=== PATIENT | male | born 1945 | race Caucasian/White ===

== ENCOUNTER 2018-11-04 08:12 | Day surgery (SDC) | payer OTHER ==
[~2018-11-04] VITALS: Ht 177.8 cm; Wt 92.1 kg
[~2018-11-04 08:12] MED LIST: ENAL20TA PO; POLY454P5 MC; PROPOFOL 10 MG/ML 20ML VIAL IV ONE; SIMV20TA6 PO; SODIUM CHLORIDE 0.9% 1000ML 1,000 ML IV ONE; TIOT4MIS5 IH
[2018-11-04 10:53] VITALS: BP 126/81
[2018-11-04 12:17] VITALS: BP 121/74
[2018-11-04 12:24] VITALS: BP 109/73
[2018-11-04 12:41] VITALS: BP 123/79
== END 2018-11-04 12:47 | disposition home or self-care (01) ==
LOC: DAH 08:12 → ENDO 08:12
PROVIDERS: ATTEND Internal Medicine
DX: C16.0 Malignant neoplasm of cardia (principal); K31.89 Other diseases of stomach and duodenum; E78.5 Hyperlipidemia, unspecified; I10 Essential (primary) hypertension; J44.9 Chronic obstructive pulmonary disease, unspecified; F17.210 Nicotine dependence, cigarettes, uncomplicated; Z98.49 Cataract extraction status, unspecified eye; Z90.49 Acquired absence of other specified parts of digestive tract; Z98.890 Other specified postprocedural states; Z79.899 Other long term (current) drug therapy; Z72.89 Other problems related to lifestyle
CPT/HCPCS: 43239; 88305; 93005; A4606; J2704; J7030

== ENCOUNTER → 2018-11-27 | Outpatient (CLI) | payer OTHER ==
[~2018-11-27] MED LIST changes: +IOHEXOL 350 MG/ML 100ML INFUS..BTL IV ONE; -PROPOFOL 10 MG/ML 20ML VIAL IV ONE; -SODIUM CHLORIDE 0.9% 1000ML 1,000 ML IV ONE
== END | disposition home or self-care (01) ==
LOC: RAH 08:53
PROVIDERS: ATTEND Internal Medicine
DX: C15.5 Malignant neoplasm of lower third of esophagus (principal); K57.30 Diverticulosis of large intestine without perforation or abscess without bleeding; K44.9 Diaphragmatic hernia without obstruction or gangrene; K40.90 Unilateral inguinal hernia, without obstruction or gangrene, not specified as recurrent; J84.10 Pulmonary fibrosis, unspecified; R59.0 Localized enlarged lymph nodes; R91.8 Other nonspecific abnormal finding of lung field; N28.1 Cyst of kidney, acquired; I71.9 Aortic aneurysm of unspecified site, without rupture; K76.89 Other specified diseases of liver
CPT/HCPCS: 71270; 74178; Q9967

== ENCOUNTER 2019-07-13 13:40 | Inpatient (IN) | payer OTHER ==
[~2019-07-13] VITALS: Ht 177.8 cm; Wt 80.9 kg
[~2019-07-13 13:40] MED LIST changes: -ENAL20TA PO; +ENAL20TA18 PO; -IOHEXOL 350 MG/ML 100ML INFUS..BTL IV ONE; +SIMV-43 PO; -SIMV20TA6 PO
[2019-07-13 14:26] LABS: ABG BASE EXCESS 0.9 mmol/L (-2.0-3.0); ABG HCO3 24.2 mmol/L (21.0-28.0); ABG OXYGEN SATURATION 91.3 % (95.0-99.0); ABG PCO2 35 mmHg (35-48)
[2019-07-13 14:50] LABS: INR 1.08 (0.85-1.15); PROTHROMBIN TIME 11.6 SEC (9.6-11.6)
[2019-07-13 14:56] LABS: BASOPHILS % (AUTO) 0.4 % (0.0-5.0); HEMATOCRIT 34.5 % (42-54); LYMPHOCYTES % (AUTO) 10.1 % (21.0-51.0); MEAN CORPUSCULAR HEMOGLOBIN 31.8 pg (27.0-33.0); MEAN CORPUSCULAR HGB CONC 32.2 g/dL (32.0-36.0); MEAN CORPUSCULAR VOLUME 98.9 fL (79-99); MONOCYTES % (AUTO) 6.6 % (3.0-13.0); NUCLEATED RED BLOOD CELLS 0.2 % (0.0-0.19); PLATELET COUNT (AUTO) 125 K/uL (130-400); RED BLOOD CELL COUNT(AUTO) 3.49 MIL/uL (4.50-6.20); RED CELL DISTRIBUTION WIDTH 18.8 % (11.0-15.5); WHITE BLOOD COUNT (AUTO) 9.2 K/uL (4.8-10.8)
[2019-07-13 14:58] LABS: CARBON DIOXIDE 29 mmol/L (21-32); CHLORIDE 103 mmol/L (101-111); CREATININE 0.8 mg/dL (0.5-1.5); GLOMERULAR FILTR. RATE CALC 101 mL/min (>60); GLUCOSE,RANDOM 98 mg/dL (70-105); POTASSIUM 3.4 mmol/L (3.5-5.1); SODIUM SERUM 137 mmol/L (136-145); UREA NITROGEN, BLOOD 12 mg/dL (7-18)
[2019-07-13 15:09] LABS: ALANINE AMINOTRANSFERASE 31 U/L (12-78); ALBUMIN 2.2 g/dL (3.5-5.0); ASPARTATE AMINOTRANSFERASE 34 U/L (10-37); BILIRUBIN,TOTAL 0.5 mg/dL (0.2-1.0); CREATINE KINASE, TOTAL 25 U/L (21-232); MYOGLOBIN 48 ng/mL (10-92); TOTAL PROTEIN, SERUM 6.7 g/dL (6.0-8.3); TROPONIN I < 0.04 ng/mL (0.00-0.06)
[2019-07-13 16:01] LABS: APPEARANCE,URINE Clear (CLEAR); BILIRUBIN,URINE Small (NEGATIVE); COLOR,URINE Dark Yellow (YELLOW); GLUCOSE, URINE (UA) Negative (NEGATIVE); KETONES,URINE Trace mg/dL (NEGATIVE); LEUKOCYTE ESTERASE ,URINE Trace (NEGATIVE); NITRATE,URINE Negative (NEGATIVE); OCCULT BLOOD,URINE Negative (NEGATIVE); PROTEIN,URINE POS 1+ mg/dL (NEGATIVE)
[2019-07-13 16:12] LABS: BACTERIA,URINE Rare /HPF (None Seen); RBC,URINE 0-1 /HPF (0-1); SQUAMOUS EPITHELIAL CELL,UR Few /HPF (0-2)
[2019-07-13 16:13] LABS: HYALINE CASTS, URINE 0-1 /LPF (0-1 /LPF); MUCUS,URINE Moderate LPF (None Seen)
[2019-07-13] MEDS ORDERED: ACETAMINOPHEN 325 MG TAB PO PRN ×2 (20:00)
[2019-07-13] MEDS ORDERED: ONDANSETRON HCL 4 MG/2 ML VIAL IV PRN (20:00)
[2019-07-13] MEDS ORDERED: HYDRALAZINE HCL 20 MG/ML VIAL IV PRN (20:00)
[2019-07-13] MEDS ORDERED: MORPHINE SULFATE 2 MG/ML 1ML SYG IV PRN (20:00)
[2019-07-13] MEDS ORDERED: LEVOFLOXACIN 750 MG/D5W 150 ML 150 ML IV SCH (20:30)
[2019-07-13] MEDS: METHYLPREDNISOLONE SOD SUCC 40MG/ML 1ML IVP SCH (20:45)
[2019-07-13] MEDS ORDERED: GUAIFENESIN-CODEINE 5 ML SYRUP PO PRN (21:00)
[2019-07-13] MEDS ORDERED: METHYLPREDNISOLONE SOD SUCC 40MG/ML 1ML ONE (22:18)
[2019-07-13] MEDS ORDERED: FAMOTIDINE/PF 20 MG/2 ML VIAL IV ONE (22:19)
[2019-07-14] VITALS (7 sets, daily range): BP systolic 102–154; BP diastolic 69–91
[2019-07-14] MEDS ORDERED: LEVO500T2 PO (01:32)
[2019-07-14 05:11] LABS: BASOPHILS % (AUTO) 0.1 % (0.0-5.0); HEMATOCRIT 32.2 % (42-54); LYMPHOCYTES % (AUTO) 7.8 % (21.0-51.0); MEAN CORPUSCULAR HEMOGLOBIN 31.5 pg (27.0-33.0); MEAN CORPUSCULAR HGB CONC 31.7 g/dL (32.0-36.0); MEAN CORPUSCULAR VOLUME 99.4 fL (79-99); MONOCYTES % (AUTO) 1.5 % (3.0-13.0); NEUTROPHILS % (AUTO) 89.9 % (40.0-77.0); PLATELET COUNT (AUTO) 110 K/uL (130-400); RED BLOOD CELL COUNT(AUTO) 3.24 MIL/uL (4.50-6.20); RED CELL DISTRIBUTION WIDTH 18.6 % (11.0-15.5); WHITE BLOOD COUNT (AUTO) 6.9 K/uL (4.8-10.8)
[2019-07-14 05:28] LABS: ALBUMIN 2.2 g/dL (3.5-5.0); BILIRUBIN,TOTAL 0.5 mg/dL (0.2-1.0); CREATININE 0.8 mg/dL (0.5-1.5); POTASSIUM 3.3 mmol/L (3.5-5.1); TOTAL PROTEIN, SERUM 6.2 g/dL (6.0-8.3)
[2019-07-14] MEDS: METHYLPREDNISOLONE SOD SUCC 40MG/ML 1ML IVP SCH ×3 (05:40→21:02)
[2019-07-14] MEDS: FAMOTIDINE/PF 20 MG/2 ML VIAL IV SCH (09:14)
[2019-07-14] MEDS: FUROSEMIDE 10 MG/ML 2ML VIAL IV SCH (09:14)
[2019-07-14] MEDS: LEVOFLOXACIN 750 MG/D5W 150 ML 150 ML IV SCH (09:58)
[2019-07-14] MEDS ORDERED: POTASSIUM CHLORIDE 20 MEQ ERTAB PO SCH (13:00)
[2019-07-15 03:41] VITALS: BP 121/79
[2019-07-15 05:28] LABS: BASOPHILS % (AUTO) 0.1 % (0.0-5.0); HEMATOCRIT 31.6 % (42-54); LYMPHOCYTES % (AUTO) 6.7 % (21.0-51.0); MEAN CORPUSCULAR HEMOGLOBIN 31.1 pg (27.0-33.0); MEAN CORPUSCULAR HGB CONC 31.3 g/dL (32.0-36.0); MEAN CORPUSCULAR VOLUME 99.4 fL (79-99); MONOCYTES % (AUTO) 3.4 % (3.0-13.0); NEUTROPHILS % (AUTO) 88.8 % (40.0-77.0); PLATELET COUNT (AUTO) 129 K/uL (130-400); RED BLOOD CELL COUNT(AUTO) 3.18 MIL/uL (4.50-6.20); RED CELL DISTRIBUTION WIDTH 18.5 % (11.0-15.5); WHITE BLOOD COUNT (AUTO) 9.7 K/uL (4.8-10.8)
[2019-07-15] MEDS: METHYLPREDNISOLONE SOD SUCC 40MG/ML 1ML IVP SCH ×2 (05:41→13:02)
[2019-07-15 05:44] LABS: B-TYPE NATRIURETIC PEPTIDE 39 pg/mL (0-100)
[2019-07-15 05:53] LABS: ALBUMIN 2.1 g/dL (3.5-5.0); CREATININE 0.8 mg/dL (0.5-1.5); MAGNESIUM 1.4 mg/dL (1.80-2.40); PHOSPHORUS 2.6 mg/dL (2.5-4.9); POTASSIUM 4.1 mmol/L (3.5-5.1)
[2019-07-15] MEDS: FAMOTIDINE/PF 20 MG/2 ML VIAL IV SCH (07:59)
[2019-07-15] MEDS: FUROSEMIDE 10 MG/ML 2ML VIAL IV SCH (08:00)
[2019-07-15] MEDS: LEVOFLOXACIN 750 MG/D5W 150 ML 150 ML IV SCH (08:00)
[2019-07-15 08:13] VITALS: BP 121/81
[2019-07-15 12:40] VITALS: BP 111/71
--- NOTE | 2019-07-15 13:00 | NUR ---
RECEIVED REPORT FROM FARIDEH BROWN PT IS AAOX3 DENIES CP DENIES SOB DENIES NV NO COMPLAINTS RESTING IN BED. CALL LIGHT WITHIN REACH. ENHANCED PRECAUTIONS IN PLACE.
--- NOTE | 2019-07-15 15:47 | NUR ---
DC PLAN PATIENT LIVES WITH SPOUSE. INDEPENDENT ABLE TO PERFORM ADL'S. PATIENT HAS NO SERVICES OR DME'S. PLAN IS TO DC HOME. Addendum: 07/15/19 at 1551 by WILL WOODY RN CM Amended: Links added.
--- NOTE | 2019-07-15 15:51 | NUR ---
DC PLAN VERBAL PENDING COVID RESULTS ON ADV ISOLATION. GOT VERBAL CONSENT COSIGNED WITH FLOOR NURSE FOR . CALLED SAID PATIENT UPSET SAID THAT PEOPLE WHO START ON NEED IT LIKE A DRUG. DR. GREENBERG VISITED WITH PATIENT. PATIENT SAID OKAY TO ORDER OXYGEN. INFO SENT TO [place]. [facility] WILL CONTINUE TO FOLLOW. Addendum: 07/15/19 at 1601 by WILL WOODY RN CM Amended: Links added.
[2019-07-15 16:31] VITALS: BP 124/81
--- NOTE | 2019-07-15 17:00 | NUR ---
DR CAMERON ROUNDED SAW PATIENT, ORDERS RECEIVED
[2019-07-15 19:05] VITALS: BP 127/83
--- NOTE | 2019-07-15 19:15 | NUR ---
PT STATES NO PAIN. NO DISTRESS NOTED. MINIMAL SOB. ON OXYGEN AT 3LPM. OXYGEN IS 92%. ST 110. STATES BEING ABLE TO AMBULATE WITH NO ASSISTANCE. DID REQUEST COFFEE. AND STATES LAST BM WAS 07/13. PT STATES NO FURTHER CONCERNS. ON DROPLET PRECAUTIONS.
--- NOTE | 2019-07-15 20:00 | NUR ---
RT AWARE OF SPUTUM CULTURE ORDER PENDING.
[2019-07-15] MEDS ORDERED: MAGNESIUM 2GM PREMIX 50ML 50 ML IV PRN (20:45)
[2019-07-15 23:36] VITALS: BP 128/84
--- NOTE | 2019-07-15 23:37 | NUR ---
MAGNESIUM PROTOCOL INITIATED. 1.4 LEVEL. RUNNING AT 20ML/HR. PT AWARE.
[2019-07-16 04:00] VITALS: BP 126/75
--- NOTE | 2019-07-16 07:10 | NUR ---
ASSESSMENT PT IS AAOX3 DENIES CP DENIES SOB WHILE AT REST AT THIS MOMENT. DENIES NV. CURRENTLY ON O2 VIA NV AT 3LPM. SITTING UPRIGHT IN BED, CALL LIGHT WITHIN REACH.
[2019-07-16] MEDS: FUROSEMIDE 10 MG/ML 2ML VIAL IV SCH (07:36)
[2019-07-16] MEDS: FAMOTIDINE/PF 20 MG/2 ML VIAL IV SCH (07:36)
[2019-07-16 08:29] VITALS: BP 125/74
[2019-07-16] MEDS ORDERED: LEVOFLOXACIN 500 MG TABLET PO SCH (09:00)
[2019-07-16] MEDS ORDERED: PREDNISONE 20 MG TABLET PO SCH (09:00)
[2019-07-16 10:30] VITALS: BP 111/47
--- NOTE | 2019-07-16 10:35 | NUR ---
TRANSFERRED PATIENT UP TO 3RD FLOOR ROOM 309. ALL BELONGINGS TAKEN WITH PATIENT. REPORT GIVEN TO DANAE BROWN.
--- NOTE | 2019-07-16 16:27 | NUR ---
CM NOTE OXYGEN DELIVERED. PRIMARY NURSE, JAMILA RN, TAUGHT HOW TO OPERATE OXYGEN CANISTER. JAMILA RN VERBALIZED UNDERSTANDING AND WILL TEACH PATIENT HOW TO OPERATE PORTABLE OXYGEN. PER OXYGEN DELIVERY, WILL DROP OFF CONCENTRATED AT HOME.
[2019-07-16] MEDS ORDERED: PRED20B PO (16:33)
[2019-07-16] MEDS ORDERED: LEVO500T2 PO (16:33)
== END 2019-07-16 19:00 | disposition home or self-care (01) | DRG 177 ==
LOC: EDH 13:40 → EDHIP 17:45 → 2AH 22:28 → 2DH 07-15 14:26 → 3BH 07-16 11:12
PROVIDERS: ADMIT Internal Medicine; ATTEND Internal Medicine
DX: J15.6 Pneumonia due to other Gram-negative bacteria (principal); J96.01 Acute respiratory failure with hypoxia; J44.1 Chronic obstructive pulmonary disease with (acute) exacerbation; C34.90 Malignant neoplasm of unspecified part of unspecified bronchus or lung; C15.9 Malignant neoplasm of esophagus, unspecified; J44.0 Chronic obstructive pulmonary disease with (acute) lower respiratory infection; E87.6 Hypokalemia; D69.6 Thrombocytopenia, unspecified; I10 Essential (primary) hypertension; J84.112 Idiopathic pulmonary fibrosis; Z87.891 Personal history of nicotine dependence; Z03.818 Encounter for observation for suspected exposure to other biological agents ruled out
CPT/HCPCS: 36415; 36600; 71045; 71250; 80048; 80053; 81001; 82040; 82550; 82803; 83605; 83735; 83874; 83880; 84100; 84145; 84484; 85025; 85610; 85730; 87040; 87088; 87633; 87635; 87804; 93005; 94760; 99291; G0378; J1940; J1956; J2920; J3475; J3490

== ENCOUNTER 2019-07-31 20:14 | Inpatient (IN) | payer OTHER ==
[~2019-07-31] VITALS: Ht 180.3 cm; Wt 89.8 kg
[~2019-07-31 20:14] MED LIST changes: +LEVO500T2 PO; +PRED20B PO
[2019-07-31] MEDS ORDERED: ASPIRIN 325 MG TABLET ONE (20:19)
[2019-07-31 20:30] LABS: BASOPHILS % (AUTO) 0.3 % (0.0-5.0); HEMATOCRIT 36.7 % (42-54); LYMPHOCYTES % (AUTO) 8.9 % (21.0-51.0); MEAN CORPUSCULAR HEMOGLOBIN 32.3 pg (27.0-33.0); MEAN CORPUSCULAR HGB CONC 31.3 g/dL (32.0-36.0); MEAN CORPUSCULAR VOLUME 103.1 fL (79-99); NEUTROPHILS % (AUTO) 82.2 % (40.0-77.0); PLATELET COUNT (AUTO) 166 K/uL (130-400); RED BLOOD CELL COUNT(AUTO) 3.56 MIL/uL (4.50-6.20); RED CELL DISTRIBUTION WIDTH 19.9 % (11.0-15.5); WHITE BLOOD COUNT (AUTO) 12.1 K/uL (4.8-10.8)
[2019-07-31 20:43] LABS: INR 1.15 (0.85-1.15); PARTIAL THROMBOPLASTIN TIME 26.8 SEC (26.3-35.5); PROTHROMBIN TIME 12.4 SEC (9.6-11.6)
[2019-07-31 21:19] LABS: ABG BASE EXCESS -3.1 mmol/L (-2.0-3.0); ABG HCO3 21.3 mmol/L (21.0-28.0); ABG PCO2 36 mmHg (35-48)
[2019-07-31 21:24] LABS: CREATININE 1.1 mg/dL (0.5-1.5); POTASSIUM 4.3 mmol/L (3.5-5.1)
[2019-07-31 21:26] LABS: ALBUMIN 2.5 g/dL (3.5-5.0); BILIRUBIN,TOTAL 0.8 mg/dL (0.2-1.0); TOTAL PROTEIN, SERUM 6.7 g/dL (6.0-8.3)
[2019-07-31] MEDS ORDERED: ZOSYN 3.375GM+NS 50ML 50 ML IV ONE (21:38)
[2019-07-31] MEDS ORDERED: METHYLPREDNISOLONE SOD SUCC 125MG/2ML VIAL ONE (21:38)
[2019-07-31 21:47] LABS: B-TYPE NATRIURETIC PEPTIDE 237 pg/mL (0-100)
[2019-07-31] MEDS ORDERED: ENOXAPARIN SODIUM 100 MG/1 ML SQ ONE (22:42)
[2019-07-31] MEDS ORDERED: GUAIFENESIN-DM 200/20 MG 10 ML PO PRN (23:45)
[2019-07-31] MEDS ORDERED: ONDANSETRON HCL 4 MG/2 ML VIAL IV PRN (23:45)
[2019-07-31] MEDS ORDERED: ALBUMIN (HUMAN) 25% 50 ML IV ONE (23:55)
[2019-08-01] VITALS (44 sets, daily range): BP systolic 79–160; BP diastolic 58–118
[2019-08-01] MEDS ORDERED: SODIUM CHLORIDE 0.9% 1000ML 1,000 ML IV SCH
[2019-08-01] MEDS ORDERED: ALBUMIN (HUMAN) 25% 50 ML IV SCH
[2019-08-01] MEDS ORDERED: VANCOMYCIN PROTOCOL PER PHARMACY IV SCH (00:30)
[2019-08-01] MEDS ORDERED: PHARMACY COMMUNICATION MISC SCH (01:15)
[2019-08-01 03:25] LABS: APPEARANCE,URINE Cloudy (CLEAR); BILIRUBIN,URINE Small (NEGATIVE); COLOR,URINE Dark Yellow (YELLOW); GLUCOSE, URINE (UA) Negative (NEGATIVE); KETONES,URINE Negative (NEGATIVE); LEUKOCYTE ESTERASE ,URINE Trace (NEGATIVE); NITRATE,URINE Negative (NEGATIVE); OCCULT BLOOD,URINE Negative (NEGATIVE); PROTEIN,URINE POS 2+ mg/dL (NEGATIVE)
[2019-08-01 03:58] LABS: BACTERIA,URINE Moderate /HPF (None Seen)
[2019-08-01 03:59] LABS: RBC,URINE 0-1 /HPF (0-1); WBC,URINE 0-1 /HPF (0-1)
[2019-08-01] MEDS ORDERED: FURO20TA4 PO (05:01)
[2019-08-01] MEDS ORDERED: FERR240T6 PO (05:01)
[2019-08-01 05:49] LABS: BASOPHILS % (AUTO) 0.2 % (0.0-5.0); HEMATOCRIT 31.7 % (42-54); LYMPHOCYTES % (AUTO) 7.6 % (21.0-51.0); MEAN CORPUSCULAR HEMOGLOBIN 32.4 pg (27.0-33.0); MEAN CORPUSCULAR HGB CONC 31.5 g/dL (32.0-36.0); MEAN CORPUSCULAR VOLUME 102.6 fL (79-99); MONOCYTES % (AUTO) 1.1 % (3.0-13.0); NEUTROPHILS % (AUTO) 90.7 % (40.0-77.0); PLATELET COUNT (AUTO) 82 K/uL (130-400); RED BLOOD CELL COUNT(AUTO) 3.09 MIL/uL (4.50-6.20); RED CELL DISTRIBUTION WIDTH 19.4 % (11.0-15.5); WHITE BLOOD COUNT (AUTO) 4.5 K/uL (4.8-10.8)
[2019-08-01 06:22] LABS: ALBUMIN 2.4 g/dL (3.5-5.0); BILIRUBIN,TOTAL 0.7 mg/dL (0.2-1.0); MAGNESIUM 1.8 mg/dL (1.80-2.40); POTASSIUM 4.3 mmol/L (3.5-5.1); TOTAL PROTEIN, SERUM 6.1 g/dL (6.0-8.3); TROPONIN I 0.51 ng/mL (0.00-0.06)
[2019-08-01] MEDS ORDERED: COMPOUND IV REFRIGERATED 1 EACH IVSOLN MISC PRN (07:00)
[2019-08-01] MEDS: ZOSYN 3.375GM+NS 50ML 50 ML IV SCH ×2 (07:46→08:00)
[2019-08-01] MEDS: FAMOTIDINE/PF 20 MG/2 ML VIAL IV SCH ×2 (07:46→21:01)
[2019-08-01] MEDS ORDERED: VANCOMYCIN 1.25 GM in SODIUM CHLORIDE 0.9% 250 ML IV SCH (08:00)
[2019-08-01] MEDS ORDERED: METHYLPREDNISOLONE SOD SUCC 40MG/ML 1ML IVP SCH (09:00)
[2019-08-01] MEDS ORDERED: ENOXAPARIN SODIUM 30 MG/0.3 ML SQ SCH (09:00)
--- NOTE | 2019-08-01 15:24 | NUR ---
INITIAL: Call placed to spouse Marguerite this afternoon to discuss dcp. Per pt's spouse, prior to admission pt was living at home and only walking short distances but kept losing his balance. He is independent w ADLs. and owns a cane, nebulizer and Oxygen. Per Mrs Prajapati, their grandson has been down from college and was assisting them as needed. Mrs Prajapati verbalizes that pt may need [place] but is not sure if pt will be agreeable. Informed Mrs Prajapati that CM will continue to follow pts progress during hospitalization and wait for Md recommendations. Addendum: 08/01/19 at 1529 by YODIT WAGNER Amended: Links added.
[2019-08-01] MEDS: MEROPENEM 1 GM VIAL IVP SCH ×2 (16:59→21:44)
[2019-08-01] MEDS: METHYLPREDNISOLONE SOD SUCC 40MG/ML 1ML IVP SCH ×2 (17:00→21:44)
[2019-08-01] MEDS ORDERED: GUAIFENESIN-CODEINE 5 ML SYRUP PO PRN (20:30)
[2019-08-01] MEDS: ENOXAPARIN SODIUM 80 MG/0.8 ML SQ SCH (21:01)
[2019-08-02] VITALS (55 sets, daily range): BP systolic 111–161; BP diastolic 72–110
[2019-08-02] MEDS: METHYLPREDNISOLONE SOD SUCC 40MG/ML 1ML IVP SCH ×3 (06:08→21:27)
[2019-08-02] MEDS: MEROPENEM 1 GM VIAL IVP SCH ×3 (06:08→21:27)
[2019-08-02 06:18] LABS: ALBUMIN 2.3 g/dL (3.5-5.0); BILIRUBIN,TOTAL 0.5 mg/dL (0.2-1.0); CREATININE 0.9 mg/dL (0.5-1.5); CRP QUANTITATIVE 48.5 mg/L (0.00-9.0); POTASSIUM 4.4 mmol/L (3.5-5.1); TOTAL PROTEIN, SERUM 5.9 g/dL (6.0-8.3)
[2019-08-02 07:03] LABS: HEMATOCRIT 35.3 % (42-54); LYMPHOCYTES % (AUTO) 8.1 % (21.0-51.0); MEAN CORPUSCULAR HEMOGLOBIN 32.4 pg (27.0-33.0); MEAN CORPUSCULAR HGB CONC 31.2 g/dL (32.0-36.0); MEAN CORPUSCULAR VOLUME 104.1 fL (79-99); MONOCYTES % (AUTO) 5.6 % (3.0-13.0); NEUTROPHILS % (AUTO) 84.2 % (40.0-77.0); PLATELET COUNT (AUTO) 117 K/uL (130-400); RED BLOOD CELL COUNT(AUTO) 3.39 MIL/uL (4.50-6.20); RED CELL DISTRIBUTION WIDTH 19.7 % (11.0-15.5); WHITE BLOOD COUNT (AUTO) 7.5 K/uL (4.8-10.8)
[2019-08-02] MEDS: FAMOTIDINE/PF 20 MG/2 ML VIAL IV SCH ×2 (08:55→21:27)
[2019-08-02] MEDS: ENOXAPARIN SODIUM 80 MG/0.8 ML SQ SCH ×2 (08:55→21:27)
[2019-08-02] MEDS: LINEZOLID 600 MG/ISO-OSM 300 ML IV SCH ×2 (08:55→21:27)
--- NOTE | 2019-08-02 19:00 | NUR ---
Dr. Quevedo at bedside. advanced diet to CLD.
[2019-08-03] VITALS (32 sets, daily range): BP systolic 130–171; BP diastolic 78–110
[2019-08-03 05:39] LABS: HEMATOCRIT 35.3 % (42-54); LYMPHOCYTES % (AUTO) 6.4 % (21.0-51.0); MEAN CORPUSCULAR HEMOGLOBIN 32.2 pg (27.0-33.0); MEAN CORPUSCULAR HGB CONC 31.4 g/dL (32.0-36.0); MEAN CORPUSCULAR VOLUME 102.3 fL (79-99); MONOCYTES % (AUTO) 4.1 % (3.0-13.0); NEUTROPHILS % (AUTO) 87.2 % (40.0-77.0); PLATELET COUNT (AUTO) 101 K/uL (130-400); RED BLOOD CELL COUNT(AUTO) 3.45 MIL/uL (4.50-6.20); RED CELL DISTRIBUTION WIDTH 19.4 % (11.0-15.5); WHITE BLOOD COUNT (AUTO) 6.4 K/uL (4.8-10.8)
[2019-08-03 05:56] LABS: ALBUMIN 2.4 g/dL (3.5-5.0); BILIRUBIN,TOTAL 0.5 mg/dL (0.2-1.0); CREATININE 0.8 mg/dL (0.5-1.5); POTASSIUM 4.3 mmol/L (3.5-5.1); TOTAL PROTEIN, SERUM 5.9 g/dL (6.0-8.3)
[2019-08-03] MEDS: MEROPENEM 1 GM VIAL IVP SCH ×3 (06:16→21:38)
[2019-08-03] MEDS: METHYLPREDNISOLONE SOD SUCC 40MG/ML 1ML IVP SCH ×3 (06:16→21:38)
[2019-08-03] MEDS ORDERED: FAMOTIDINE 20MG TAB 20 MG TAB ONE (08:34)
[2019-08-03] MEDS: ENOXAPARIN SODIUM 80 MG/0.8 ML SQ SCH ×2 (08:36→21:38)
[2019-08-03] MEDS: LINEZOLID 600 MG/ISO-OSM 300 ML IV SCH ×2 (08:37→21:38)
[2019-08-03] MEDS: FAMOTIDINE 20MG TAB 20 MG TAB PO SCH ×2 (09:00→21:38)
[2019-08-03] MEDS: AZITHROMYCIN 500MG+NS 250ML 250 ML IV SCH (10:18)
[2019-08-04] VITALS (7 sets, daily range): BP systolic 130–152; BP diastolic 82–109
[2019-08-04 05:09] LABS: EOSINOPHILS % (AUTO) 2.1 % (0.0-8.0); LYMPHOCYTES % (AUTO) 7.7 % (21.0-51.0); MEAN CORPUSCULAR HEMOGLOBIN 32.2 pg (27.0-33.0); MEAN CORPUSCULAR HGB CONC 31.1 g/dL (32.0-36.0); MEAN CORPUSCULAR VOLUME 103.5 fL (79-99); NEUTROPHILS % (AUTO) 84.8 % (40.0-77.0); PLATELET COUNT (AUTO) 100 K/uL (130-400); RED BLOOD CELL COUNT(AUTO) 3.67 MIL/uL (4.50-6.20); WHITE BLOOD COUNT (AUTO) 5.6 K/uL (4.8-10.8)
[2019-08-04 05:31] LABS: ALBUMIN 2.6 g/dL (3.5-5.0); BILIRUBIN,TOTAL 0.6 mg/dL (0.2-1.0); CREATININE 0.8 mg/dL (0.5-1.5); CRP QUANTITATIVE 17.9 mg/L (0.00-9.0); POTASSIUM 3.9 mmol/L (3.5-5.1); TOTAL PROTEIN, SERUM 6.3 g/dL (6.0-8.3)
[2019-08-04] MEDS: MEROPENEM 1 GM VIAL IVP SCH ×3 (05:38→21:40)
[2019-08-04] MEDS: METHYLPREDNISOLONE SOD SUCC 40MG/ML 1ML IVP SCH ×3 (05:38→21:36)
[2019-08-04] MEDS: FAMOTIDINE 20MG TAB 20 MG TAB PO SCH ×2 (08:37→21:37)
[2019-08-04] MEDS: LINEZOLID 600 MG/ISO-OSM 300 ML IV SCH ×2 (08:37→22:25)
[2019-08-04] MEDS: AZITHROMYCIN 500MG+NS 250ML 250 ML IV SCH (08:37)
[2019-08-04] MEDS: ENOXAPARIN SODIUM 80 MG/0.8 ML SQ SCH ×2 (08:37→21:36)
[2019-08-04] MEDS ORDERED: LOPERAMIDE HCL 2 MG CAP PO PRN ×2 (10:30→11:30)
[2019-08-04] MEDS ORDERED: LOPERAMIDE HCL 2 MG CAP PO SCH (11:30)
--- NOTE | 2019-08-04 12:00 | NUR ---
received pt as a transfer from the unit; i have oriented to room, call light system and plan of care; [address], pt aaox3 and in no distress
--- NOTE | 2019-08-04 12:43 | NUR ---
DC PLAN VISITED WITH PATIENT. SPOKE TO HIM SAID HE DID GET THE O2 AND CONCENTRATOR FROM LAST ADMISSION. THEY ARE AT THE HOUSE. Addendum: 08/04/19 at 1244 by WILL WOODY RN CM Amended: Links added.
[2019-08-04] MEDS: IPRATROPIUM 0.5 MG/2.5 ML INH IH SCH ×3 (18:25→23:39)
[2019-08-04] MEDS: POLYETHYLENE GLYCOL 500 GM PO SCH (20:55)
[2019-08-04] MEDS: METOPROLOL TARTRATE 25 MG TAB PO SCH (21:37)
[2019-08-05] VITALS (7 sets, daily range): BP systolic 114–149; BP diastolic 79–98
[2019-08-05 04:35] LABS: HEMATOCRIT 38.4 % (42-54); LYMPHOCYTES % (AUTO) 5.6 % (21.0-51.0); MEAN CORPUSCULAR HEMOGLOBIN 32.4 pg (27.0-33.0); MEAN CORPUSCULAR HGB CONC 31.3 g/dL (32.0-36.0); MEAN CORPUSCULAR VOLUME 103.8 fL (79-99); PLATELET COUNT (AUTO) 99 K/uL (130-400); RED CELL DISTRIBUTION WIDTH 18.6 % (11.0-15.5); WHITE BLOOD COUNT (AUTO) 5.4 K/uL (4.8-10.8)
[2019-08-05 05:09] LABS: ALBUMIN 2.5 g/dL (3.5-5.0); BILIRUBIN,TOTAL 0.6 mg/dL (0.2-1.0); CREATININE 0.7 mg/dL (0.5-1.5); CRP QUANTITATIVE 8.6 mg/L (0.00-9.0); PHOSPHORUS 2.4 mg/dL (2.5-4.9); POTASSIUM 4.2 mmol/L (3.5-5.1)
[2019-08-05] MEDS: IPRATROPIUM 0.5 MG/2.5 ML INH IH SCH ×4 (06:35→23:12)
[2019-08-05] MEDS: MEROPENEM 1 GM VIAL IVP SCH (07:16)
[2019-08-05] MEDS: FAMOTIDINE 20MG TAB 20 MG TAB PO SCH ×2 (08:26→19:57)
[2019-08-05] MEDS: AZITHROMYCIN 500MG+NS 250ML 250 ML IV SCH (08:27)
[2019-08-05] MEDS: METOPROLOL TARTRATE 25 MG TAB PO SCH ×2 (08:27→19:58)
[2019-08-05] MEDS: METHYLPREDNISOLONE SOD SUCC 40MG/ML 1ML IVP SCH (08:27)
[2019-08-05] MEDS: ENOXAPARIN SODIUM 80 MG/0.8 ML SQ SCH (08:27)
[2019-08-05] MEDS: SIMVASTATIN 20 MG TABLET PO SCH (08:27)
[2019-08-05] MEDS: FUROSEMIDE 20 MG TABLET PO SCH (08:27)
[2019-08-05] MEDS ORDERED: LEVOFLOXACIN 500 MG TABLET PO SCH (09:42)
[2019-08-05] MEDS: ZYVOX 600 MG TAB PO SCH ×2 (10:08→19:58)
[2019-08-05] MEDS: ASPIRIN 81MG TAB.CHEW PO SCH (11:59)
--- NOTE | 2019-08-05 14:15 | NUR ---
CARDIOLOGY CONSULT DR BERE BARRETO IN TO SEE PT. PER DR BARRETO 2 D ECHO RESULTS "NORMAL".
--- NOTE | 2019-08-05 14:17 | NUR ---
MD NOTIFICATION DR GREENBERG NOTIFIED OF 2D ECHO RESULTS.
[2019-08-05] MEDS: POLYETHYLENE GLYCOL 500 GM PO SCH (19:41)
[2019-08-05] MEDS: APIXABAN 2.5 MG TABLET PO SCH (19:57)
[2019-08-05] MEDS ORDERED: APIXABAN 2.5 MG TABLET PO SCH (21:00)
--- NOTE | 2019-08-05 21:00 | NUR ---
UPDATE SPOKE TO PATIENTS PRABHAKAR VIA PHONE, UPDATE GIVEN ON PATIENT STATUS AND PLAN OF CARE, PER PRABHAKAR WILL LIKE TO SPEAK TO DOCTOR TOMORROW FOR DISCHARGE PLAN
[2019-08-06 03:52] VITALS: BP 130/89
[2019-08-06 04:02] LABS: EOSINOPHILS % (AUTO) 2.2 % (0.0-8.0); HEMATOCRIT 39.3 % (42-54); LYMPHOCYTES % (AUTO) 14.2 % (21.0-51.0); MEAN CORPUSCULAR HEMOGLOBIN 32.3 pg (27.0-33.0); MONOCYTES % (AUTO) 6.7 % (3.0-13.0); NEUTROPHILS % (AUTO) 76.7 % (40.0-77.0); PLATELET COUNT (AUTO) 97 K/uL (130-400); RED BLOOD CELL COUNT(AUTO) 3.78 MIL/uL (4.50-6.20); RED CELL DISTRIBUTION WIDTH 18.3 % (11.0-15.5)
[2019-08-06 04:31] LABS: ALBUMIN 2.4 g/dL (3.5-5.0); BILIRUBIN,TOTAL 0.7 mg/dL (0.2-1.0); CREATININE 0.7 mg/dL (0.5-1.5); CRP QUANTITATIVE 7.8 mg/L (0.00-9.0); TOTAL PROTEIN, SERUM 5.7 g/dL (6.0-8.3)
[2019-08-06] MEDS: IPRATROPIUM 0.5 MG/2.5 ML INH IH SCH ×4 (06:25→23:10)
[2019-08-06 07:59] VITALS: BP 130/93
[2019-08-06] MEDS: ASPIRIN 81MG TAB.CHEW PO SCH (08:51)
[2019-08-06] MEDS: METOPROLOL TARTRATE 25 MG TAB PO SCH ×2 (08:51→21:25)
[2019-08-06] MEDS: PREDNISONE 20 MG TABLET PO SCH (08:51)
[2019-08-06] MEDS: ZYVOX 600 MG TAB PO SCH ×2 (08:51→21:25)
[2019-08-06] MEDS: FAMOTIDINE 20MG TAB 20 MG TAB PO SCH ×2 (08:52→21:25)
[2019-08-06] MEDS: FUROSEMIDE 20 MG TABLET PO SCH (08:52)
[2019-08-06] MEDS: APIXABAN 2.5 MG TABLET PO SCH ×2 (08:52→21:24)
[2019-08-06] MEDS: SIMVASTATIN 20 MG TABLET PO SCH (08:54)
[2019-08-06] MEDS ORDERED: PREDNISONE 20 MG TABLET PO SCH (09:00)
[2019-08-06] MEDS ORDERED: PRED20B PO (11:14)
[2019-08-06] MEDS ORDERED: METO25 PO (11:14)
[2019-08-06] MEDS ORDERED: ASPI-1005 PO (11:14)
[2019-08-06] MEDS ORDERED: APIX5TAB PO (11:14)
[2019-08-06] MEDS ORDERED: LINE600T11 PO (11:14)
[2019-08-06 11:40] VITALS: BP 133/88
--- NOTE | 2019-08-06 12:15 | NUR ---
MD VISIT/DISCHARGE DR GREENBERG IN TO SEE PT. PT TO BE DISCHARGE HOME TODAY. PT STATES TO NOT BEING ABLE TO WALK AND UNABLE TO GO HOME. CM NOTIFIED OF CHANGE IN DC DISPOSITION. PLAN TO DC PT TO SNF.
--- NOTE | 2019-08-06 12:24 | NUR ---
STATUS DR GREENBERG UPDATED PT'S SPOUSE PRABHAKAR VIA TELEPHONE ON PT'S STATUS & DC PLAN OF CARE.
--- NOTE | 2019-08-06 13:14 | NUR ---
DC PLAN PATIENT CHANGED DC PLAN. YESTERDAY SAID WANTED TO GO HOME. TODAY SAID HE CAN NOT EVEN WALK HOW IS HE SUPPOSED TO GO HOME. SPOKE TO WHO ALSO AGREED. RODRIGUEZ FOR ANY IN NETWORK. PER DOES NOT MATTER WHERE HE GOES SINCE SHE CAN NOT VISIT ANYWAY. ASKED IF HE HAD SECONDARY INSURANCE SAID NO ONLY [facility]. SPOKE TO [facility] SAID THEY DO HAVE [facility] AVAIL[facility]. INFO FAXED AND EMAILED INCLUDING PAS[facility] AND COVID FORM. EMS STARTED. Addendum: 08/06/19 at 1317 by WILL WOODY RN CM Amended: Links added.
--- NOTE | 2019-08-06 14:08 | NUR ---
IN PLAN [facility] CALLED SAID THAT PATIENT DOES NOT HAVE SNF BENEFITS. CALLED ASKED ABOUT PRIVATE PAY OR IF HAS MCR. SAID CAN NOT AFFORD EITHER. MCR IS 20%COPAY AND CAN NOT AFFORD IT. SPOKE TO CO TRIED TO SEND TWICE ALREADY PHONE BUSY. SENT TO [phone] AND [phone]. Addendum: 08/06/19 at 1417 by WILL WOODY RN CM Amended: Links added.
[2019-08-06 15:38] VITALS: BP 129/86
[2019-08-06 19:47] VITALS: BP 122/77
[2019-08-06] MEDS: POLYETHYLENE GLYCOL 500 GM PO SCH (21:00)
[2019-08-06 23:51] VITALS: BP 117/81
[2019-08-07 04:05] VITALS: BP 125/85
[2019-08-07] MEDS: IPRATROPIUM 0.5 MG/2.5 ML INH IH SCH ×4 (06:27→23:25)
[2019-08-07 07:30] VITALS: BP 128/84
[2019-08-07] MEDS: APIXABAN 2.5 MG TABLET PO SCH ×2 (09:40→21:58)
[2019-08-07] MEDS: ASPIRIN 81MG TAB.CHEW PO SCH (09:40)
[2019-08-07] MEDS: SIMVASTATIN 20 MG TABLET PO SCH (09:40)
[2019-08-07] MEDS: ZYVOX 600 MG TAB PO SCH ×2 (09:41→21:58)
[2019-08-07] MEDS: PREDNISONE 20 MG TABLET PO SCH (09:41)
[2019-08-07] MEDS: FUROSEMIDE 20 MG TABLET PO SCH (09:41)
[2019-08-07] MEDS: FAMOTIDINE 20MG TAB 20 MG TAB PO SCH ×2 (09:41→21:58)
[2019-08-07] MEDS: METOPROLOL TARTRATE 25 MG TAB PO SCH ×2 (09:41→21:58)
[2019-08-07 11:00] VITALS: BP 100/72
--- NOTE | 2019-08-07 13:46 | NUR ---
NILTON SCREEN - LOS X 7 DAYS Pt admitted with PNA. Pt tolerating Regular diet order, Fair PO intake (75%), no report of GI distress. Signs of mild fat/muscle loss, as per EMR. NILTON recommend Ensure QD. Recommend 500mg Vitamin C, QD. RD to continue to monitor. Please notify as nutritional concerns arise. Thank you. Addendum: 08/07/19 at [address] Amended: Links added.
--- NOTE | 2019-08-07 15:00 | NUR ---
CM NOTE SPOKE TO pt's spouse helene, and she states that her plan is for pt to go to [facility], and does not want home health until he leaves the snf, also received call from [place] and spoke to caitlin [phone] and states that wants to go to [facility], and also has medicare and would like to use it for snf. call made to to confirm and states wishes to use the medicare for snf. referal faxed to [facility] and spoke to Gunjan max who will evaluate. [id number]- medicare #
[2019-08-07 16:00] VITALS: BP 107/77
--- NOTE | 2019-08-07 17:44 | NUR ---
cm note spoke to ms salcedo, and states she prefers to go to [facility], after speaking the josh with [facility] choice letter obtaiined. per josh will let cm know when accepted.
[2019-08-07 19:30] VITALS: BP 122/80
[2019-08-07] MEDS: POLYETHYLENE GLYCOL 500 GM PO SCH (21:00)
[2019-08-08 00:13] VITALS: BP 104/79
[2019-08-08 03:10] VITALS: BP 137/93
[2019-08-08 05:14] LABS: BASOPHILS % (AUTO) 0.1 % (0.0-5.0); EOSINOPHILS % (AUTO) 2.3 % (0.0-8.0); HEMATOCRIT 38.7 % (42-54); LYMPHOCYTES % (AUTO) 12.9 % (21.0-51.0); MEAN CORPUSCULAR HEMOGLOBIN 32.7 pg (27.0-33.0); MEAN CORPUSCULAR VOLUME 105.4 fL (79-99); MONOCYTES % (AUTO) 5.9 % (3.0-13.0); NEUTROPHILS % (AUTO) 78.7 % (40.0-77.0); PLATELET COUNT (AUTO) 85 K/uL (130-400); RED BLOOD CELL COUNT(AUTO) 3.67 MIL/uL (4.50-6.20); RED CELL DISTRIBUTION WIDTH 17.9 % (11.0-15.5); WHITE BLOOD COUNT (AUTO) 6.8 K/uL (4.8-10.8)
[2019-08-08 05:31] LABS: ALANINE AMINOTRANSFERASE 35 U/L (12-78); ALBUMIN 2.4 g/dL (3.5-5.0); ASPARTATE AMINOTRANSFERASE 33 U/L (10-37); BILIRUBIN,TOTAL 0.7 mg/dL (0.2-1.0); CARBON DIOXIDE 37 mmol/L (21-32); CHLORIDE 102 mmol/L (101-111); CREATININE 0.6 mg/dL (0.5-1.5); GLOMERULAR FILTR. RATE CALC 140 mL/min (>60); GLUCOSE,RANDOM 87 mg/dL (70-105); PHOSPHORUS 2.5 mg/dL (2.5-4.9); POTASSIUM 4.3 mmol/L (3.5-5.1); SODIUM SERUM 139 mmol/L (136-145); TOTAL PROTEIN, SERUM 5.6 g/dL (6.0-8.3); UREA NITROGEN, BLOOD 24 mg/dL (7-18)
[2019-08-08] MEDS: IPRATROPIUM 0.5 MG/2.5 ML INH IH SCH ×4 (06:17→23:07)
[2019-08-08 07:30] VITALS: BP 121/80
[2019-08-08] MEDS: FAMOTIDINE 20MG TAB 20 MG TAB PO SCH ×2 (10:59→22:19)
[2019-08-08] MEDS: APIXABAN 2.5 MG TABLET PO SCH ×2 (11:00→22:19)
[2019-08-08] MEDS: SIMVASTATIN 20 MG TABLET PO SCH (11:00)
[2019-08-08] MEDS: METOPROLOL TARTRATE 25 MG TAB PO SCH ×2 (11:00→22:19)
[2019-08-08] MEDS: ASPIRIN 81MG TAB.CHEW PO SCH (11:01)
[2019-08-08] MEDS: ZYVOX 600 MG TAB PO SCH ×2 (11:01→22:19)
[2019-08-08] MEDS: FUROSEMIDE 20 MG TABLET PO SCH (11:01)
[2019-08-08 11:30] VITALS: BP 118/74
--- NOTE | 2019-08-08 15:00 | NUR ---
cm note call made to josh with [facility], states is still pending approval. will let cm know. also discussed dc plan with dr hawkins, states possible dc saturday.
[2019-08-08 15:30] VITALS: BP 122/80
[2019-08-08 19:50] VITALS: BP 114/79
[2019-08-08] MEDS: POLYETHYLENE GLYCOL 500 GM PO SCH (21:00)
[2019-08-09 00:05] VITALS: BP 115/78
[2019-08-09 04:22] VITALS: BP 128/69
[2019-08-09] MEDS: IPRATROPIUM 0.5 MG/2.5 ML INH IH SCH ×4 (06:13→23:26)
[2019-08-09 07:30] VITALS: BP 99/74
[2019-08-09] MEDS: ASPIRIN 81MG TAB.CHEW PO SCH (09:00)
[2019-08-09] MEDS: ZYVOX 600 MG TAB PO SCH ×2 (09:01→21:37)
[2019-08-09] MEDS: FAMOTIDINE 20MG TAB 20 MG TAB PO SCH ×2 (09:01→21:37)
[2019-08-09] MEDS: SIMVASTATIN 20 MG TABLET PO SCH (09:01)
[2019-08-09] MEDS: FUROSEMIDE 20 MG TABLET PO SCH (09:01)
[2019-08-09] MEDS: METOPROLOL TARTRATE 25 MG TAB PO SCH ×2 (09:01→21:37)
[2019-08-09] MEDS: APIXABAN 2.5 MG TABLET PO SCH ×2 (09:01→21:37)
[2019-08-09 11:30] VITALS: BP 109/72
[2019-08-09 15:30] VITALS: BP 110/79
[2019-08-09 20:51] VITALS: BP 134/83
[2019-08-09] MEDS: POLYETHYLENE GLYCOL 500 GM PO SCH (21:00)
[2019-08-10 00:34] VITALS: BP 126/83
[2019-08-10 04:00] VITALS: BP 107/79
[2019-08-10] MEDS: IPRATROPIUM 0.5 MG/2.5 ML INH IH SCH ×2 (06:45→10:54)
[2019-08-10 07:00] VITALS: BP 124/84
[2019-08-10] MEDS: METOPROLOL TARTRATE 25 MG TAB PO SCH (09:20)
[2019-08-10] MEDS: ZYVOX 600 MG TAB PO SCH (09:21)
[2019-08-10] MEDS: FUROSEMIDE 20 MG TABLET PO SCH (09:21)
[2019-08-10] MEDS: FAMOTIDINE 20MG TAB 20 MG TAB PO SCH (09:21)
[2019-08-10] MEDS: SIMVASTATIN 20 MG TABLET PO SCH (09:21)
[2019-08-10] MEDS: APIXABAN 2.5 MG TABLET PO SCH (09:22)
[2019-08-10] MEDS: ASPIRIN 81MG TAB.CHEW PO SCH (09:22)
--- NOTE | 2019-08-10 11:00 | NUR ---
CM Note: Tani Vidales approval CM spoke to Gunjan Jose, received updated clinicals. Pt has approval. EMS arranged and faxed for today, primary nurse to call [facility] once pt ready to DC. Primray nurse aware. CM to cont to follow up.
[2019-08-10 11:37] VITALS: BP 117/78
[2019-08-10 15:56] VITALS: BP 121/77
--- NOTE | 2019-08-10 17:46 | NUR ---
report given to [place], Nurse from [facility]. Patient's also notified that patient will be leaving to [facility] this evening. PIV and telepack removed. Prescription given to patient and copy placed in chart. Med Rec faxed to [place] at [phone]. All d/c instructions given and all questions answered. Dr Arevalo is to follow up with patient at [facility]
--- NOTE | 2019-08-10 18:00 | NUR ---
EMS notified of patient needing transfer to [facility] at this time; EMS en route
== END 2019-08-10 19:10 | DRG 871 ==
LOC: EDH 20:14 → EDHIP 23:31 → 2CH 08-01 03:17 → 4AH 08-04 11:27
PROVIDERS: ADMIT Internal Medicine; ATTEND Internal Medicine
DX: A41.50 Gram-negative sepsis, unspecified (principal); J96.21 Acute and chronic respiratory failure with hypoxia; J15.6 Pneumonia due to other Gram-negative bacteria; J44.0 Chronic obstructive pulmonary disease with (acute) lower respiratory infection; C15.9 Malignant neoplasm of esophagus, unspecified; J44.1 Chronic obstructive pulmonary disease with (acute) exacerbation; I82.432 Acute embolism and thrombosis of left popliteal vein; I82.621 Acute embolism and thrombosis of deep veins of right upper extremity; D61.818 Other pancytopenia; I82.611 Acute embolism and thrombosis of superficial veins of right upper extremity; S40.022A Contusion of left upper arm, initial encounter; W18.30XA Fall on same level, unspecified, initial encounter; Y92.238 Other place in hospital as the place of occurrence of the external cause; R65.20 Severe sepsis without septic shock; I10 Essential (primary) hypertension; E66.9 Obesity, unspecified; E78.5 Hyperlipidemia, unspecified; R94.31 Abnormal electrocardiogram [ECG] [EKG]; Y95 Nosocomial condition; J84.112 Idiopathic pulmonary fibrosis; I27.20 Pulmonary hypertension, unspecified; R79.1 Abnormal coagulation profile; Z79.01 Long term (current) use of anticoagulants; Z03.818 Encounter for observation for suspected exposure to other biological agents ruled out; Z74.01 Bed confinement status; Y93.89 Activity, other specified; Y99.8 Other external cause status; Z87.891 Personal history of nicotine dependence; Z68.27 Body mass index [BMI] 27.0-27.9, adult; Z79.899 Other long term (current) drug therapy
CPT/HCPCS: 36415; 36600; 71045; 80053; 80061; 81001; 82550; 82728; 82803; 83605; 83615; 83735; 83874; 83880; 84100; 84145; 84484; 85025; 85378; 85610; 85730; 86140; 86738; 87040; 87071; 87088; 87205; 87449; 87633; 87635; 93005; 93306; 93356; 93970; 94640; 94664; 97039; 99291; G0378; J0456; J1650; J2020; J2185; J2543; J2920; J2930; J3370; J3490; J7050; P9047